=== PATIENT | female | born 1990 | race Hispanic/Latino ===

== ENCOUNTER 2016-05-02 02:13 | Inpatient (IN) | payer OTHER ==
[~2016-05-02] VITALS: Ht 157.5 cm; Wt 54.9 kg
[~2016-05-02 02:13] MED LIST: ASCO1TAB22 PO; Docusate Sodium PO; Hydrocodone/Acetaminophen PO; Ibuprofen PO; PNV1TABL9 PO
[2016-05-02] MEDS ORDERED: Lactated Ringer's 1,000 ML IV PRN (02:44)
[2016-05-02] MEDS ORDERED: Oxytocin 30 Units/500 mL LR 30 UNITS in IV Premix 1 EACH IV PRN ×2 (02:45→11:15)
[2016-05-02] MEDS ORDERED: Ondansetron 2 mg/mL 2 mL Inj IVPUSH PRN ×2 (02:45→03:55)
[2016-05-02] MEDS ORDERED: Hemorrhage Kit, Post Partum XX ONE ×2 (02:45→11:15)
[2016-05-02] MEDS ORDERED: fentaNYL-PF 50 mCg/mL 2 mL Inj IVPUSH PRN (02:45)
[2016-05-02] MEDS ORDERED: Oxytocin 10 Unit/mL Inj IM PRN ×2 (02:45→11:15)
[2016-05-02] MEDS ORDERED: Methylergonovine 0.2 mg/mL Inj IM PRN ×2 (02:45→11:15)
[2016-05-02] MEDS ORDERED: Carboprost 250 mCg/mL Inj IM PRN ×2 (02:45→11:15)
[2016-05-02] MEDS ORDERED: Sodium Chloride LOK Flush 10 mL Syringe IVFLUSH PRN (02:45)
[2016-05-02 03:28] LABS: Mean Corpuscular Hemoglobin 26.7 pg (27.0-35.0)
[2016-05-02] MEDS ORDERED: Lactated Ringer's 1,000 ML IV SCH ×2 (03:55→11:14)
[2016-05-02] MEDS ORDERED: Lactated Ringer's 500 ML IV ONE (03:55)
[2016-05-02] MEDS ORDERED: Atropine 1 mg/10 mL (Code) Syringe IVPUSH PRN (03:55)
[2016-05-02] MEDS ORDERED: EPHEDrine Sulfate 50 mg/mL Inj IVPUSH PRN (03:55)
[2016-05-02] MEDS ORDERED: fentaNYL 2 mCg/mL-Bupiv 0.125% 100 ML EPIDURAL SCH (03:55)
--- NOTE | 2016-05-02 04:41 | PCM.HPANE ---
Patient Data Surgeon Admitting Provider:Ted Pace MD Attending Provider:Ted Pace MD Primary Care Physician:Alex Gusman MD Other Provider:Roberto Carlos Limon Anesthesia Reason for Visit Term Labor TERM LABOR Ht/WT & BMI Body Mass Index Allergies Coded Allergies: No Known Allergies (Unverified , 01/16/14) Diabetes History Hx Diabetes?: No MRSA MRSA: No Medications Active Scripts [Docusate Sodium] (Colace)100 MG CAPSULE No Conflict [id number] Mg PO BID #60 CAPSULE Ref 1 Prov:CochranBull T DO 01/18/14 [Hydrocodone/Acetaminophen] ([place])1 TAB TABLET No Conflict Check1-2 Tab PO Q4H PRN For Pain #15 TABLET Prov:GlasersayeEllynBull T DO 01/18/14 [Ibuprofen] (Motrin)600 MG TABLET No Conflict [id number] Mg PO Q8 PRN For Mild Pain #45 TABLET Ref 1 Prov:Bull Cochran T DO 01/18/14 Reported Medications Ascorbic Acid/Bioflavonoids (Vit C-Bioflavonoids Tab SA)1 Each Tablet.er1 Each PO DAILY 01/16/14 Pnv Cmb#21/Iron/Folic Acid ( Complete Caplet)1 Each Tablet1 Each PO DAILY 01/16/14 History History of ENT Problems?: No Hx of Heart Problems?: No Hx of Respiratory Problem?: No Hx Neurologic Problems?: No Hx of GI Problems?: Yes Other History/Comment Occasional reflux rx'd with priolsec Hx of Problems?: No Female Hx: Positive for:: Currently Other History/Comment at term Hx Musculoskeletal Problems?: No Hx of Psycho/Social Problems?: No Hx Surgeries?: No Hx Diabetes: No Hx Alcohol Use: NoHx Substance Use: No Smoking Status: Never Smoker Stop/Bang Risk Assessment Category Category 1A: Patient has history of documented sleep apnea, and HAS NOT received any narcotic, sedative or anesthesia administration during this stay. Category 1B: Patient has history of documented sleep apnea, and HAS received any narcotic , sedative or anesthesia administration during this stay Category 2: Patient has SUSPECTED Obstructive Sleep Apnea, and HAS received any narcotic , sedative or anesthesia administration during this stay. Category 3: Patient has SUSPECTED Obstructive Sleep Apnea and HAS NOT received narcotic, sedative or anesthesia administration during this stay. Category 4: Outpatient in Procedural Areas with known sleep apnea or who screen positive for High Risk via the STOP/BANG questionnaire. Exam Exam General Appearance: Alert, Oriented X3, Cooperative HEENT/AIRWAY: MP 2 Lungs: Clear to Auscultation Heart: Exam Unremarkable (Exam done prior to starting epidural) Meds/Labs/Diagnostics Labs Test 05/02/16 03:15 White Blood Count 5.8th/mm3 (3.8-10.1) Red Blood Count 4.15mil/mm3 (3.90-5.20) Hemoglobin 11.1g/dL (12.0-15.6) Hematocrit 33.6% (35.0-46.0) Mean Corpuscular Volume 81.0fL (81-100) Mean Corpuscular Hemoglobin 26.7pg (27.0-35.0) Mean Corpuscular Hemoglobin Concent 33.0% (32.0-37.0) Red Cell Distribution Width 13.3% (12.3-15.4) Platelet Count 183bil/L (150-400) Plan Impression Patient chart reviewed, patient interviewed and anesthestic plan with risks, benefits, and alternatives discussed, and informed consent obtained. Juan Manuel Murguia MD May 02, 2016 04:41
--- NOTE | 2016-05-02 04:42 | PCM.ANEP1 ---
Post Anesthesia Phase 1 PACU Phase 1 Assessment Anesthetic Administered: Epidural Level of Alertness: Awake, talking MARKS's with Equal Strength: No Pain: Yes Pain Scale Score: 1 Nausea or Vomiting: No Oxygen Delivery: Room Air Lungs: Clear to Auscultation Dermatome Level: T8 (Costal Margin) (Comfortable and resting) Juan Manuel Murguia MD May 02, 2016 04:42
[2016-05-02] MEDS ORDERED: Sodium Chloride LOK Flush 10 mL Syringe IVFLUSH SCH (08:30)
--- NOTE | 2016-05-02 08:39 | HP ---
[address] [address] HISTORY AND PHYSICAL PATIENT: ALINA ALLISON I : 1990 MR#: [id number] ADMIT: 05/02/2016 JOB ID: [id number] HISTORY OF PRESENT ILLNESS: The patient is a 26-year-old, 2, para 1, at 40 weeks and 6 days, estimated due date May 01, 2016. Comes to labor and delivery with complaint of contractions that started at midnight. The patient comes at 2 o'clock a.m. She is having contractions every 2-3 minutes. She is very uncomfortable. Vital signs stable, temperature 36.7, blood pressure 130/77, pulse 92, respiratory rate 18. heart rate tracing is reactive, category 1. Baseline 140 beats per minute, no decelerations. ALLERGIES: NKDA. SOCIAL HISTORY: Patient denies smoking, alcohol, or illicit recreational drug use. CARE: Significant for suspected IUGR. The growth was essentially normal. All labs were unremarkable. She had ultrasound in the beginning of the second trimester at 14 weeks that showed estimated gestational age May 01, 2016, one day discrepancy from TYE by last menstrual period. The patient is short, she is 5 feet and 2 inches. The ultrasound that was done on April 22, 2016, showed estimated gestational age in 5th percentile. LABORATORIES: Patient's blood group and type is B positive, rubella immune, varicella immune, GBS negative. FAMILY HISTORY: Noncontributory. PHYSICAL EXAMINATION: Temperature 36.7, blood pressure 130/77. HEENT: PERRLA. Chest: Clear bilaterally. Good respiratory effort. Cardiovascular system: Regular rate and rhythm. Abdomen is tender with contractions, fundal height 36.5 cm. Pelvic exam: The cervix is 80% effaced, 4-5 cm dilated, station -1. Bulging bag of membranes. Extremities: No pitting edema. ASSESSMENT AND PLAN: The patient is a 26-year-old, 2, para 1, at 40 weeks and 1 day, estimated due date May 01, 2016. Comes to labor and delivery with complaint of contractions that started at midnight, 2 hours ago, having contractions every 2-3 minutes. Would like to have an epidural. The patient is being admitted for delivery. IV fluids started. Labs were sent. Based on her care and most recent ultrasound, estimated weight in the 5th percentile. The patient is little. It may be a gestational age baby versus intrauterine growth retardation. The coal deliverer is notified. Will anticipate spontaneous vaginal delivery.
[2016-05-02] MEDS ORDERED: Witch Hazel-Glycerin Pads TOPICAL PRN (11:15)
[2016-05-02] MEDS ORDERED: oxyCODONE-Acetamin 5-325 mg Tablet PO PRN (11:15)
[2016-05-02] MEDS ORDERED: LANOlin HPA 7 Gm Ointment TOPICAL PRN (11:15)
[2016-05-02] MEDS ORDERED: Benzocaine (Dermoplast) 20% 60 Gm Spray TOPICAL PRN (11:15)
--- NOTE | 2016-05-02 11:30 | OP ---
[address] [address] OPERATIVE REPORT PATIENT: ALINA ALLISON I : 1990 MR#: [id number] ADMIT: 05/02/2016 JOB ID: [id number] DATE OF SURGERY: 05/02/2016 SURGEON: Sera Rae MD. PREOPERATIVE DIAGNOSIS(ES): 1. A 39-week intrauterine in active labor. 2. Intrauterine growth restriction. POSTOPERATIVE DIAGNOSIS(ES): 1. A 39-week intrauterine in active labor. 2. Intrauterine growth restriction. PROCEDURE: Precipitous spontaneous vaginal delivery. INCOMPLETE DICTATION: Dictation ends here.
[2016-05-02] MEDS ORDERED: Ascorbic Acid 500 mg Tablet PO SCH (17:30)
--- NOTE | 2016-05-03 00:58 | OP ---
[address] [address] OPERATIVE REPORT PATIENT: ALINA ALLISON I : 1990 MR#: [id number] ADMIT: 05/02/2016 JOB ID: [id number] DATE OF SURGERY: 05/02/2016 PREOPERATIVE DIAGNOSIS(ES): 1. A 26-year-old, 2 para 1-0-0-1 female, at 40+ weeks gestational age, in active labor. 2. Intrauterine growth restriction. 3. History of depression. POSTOPERATIVE DIAGNOSIS(ES): 1. A 26-year-old, 2 para 1-0-0-1 female, at 40+ weeks gestational age, in active labor. 2. Intrauterine growth restriction. 3. History of depression. PROCEDURE PERFORMED: Spontaneous vaginal delivery. SURGEON: Sera Rae MD FINDINGS: Live-born , born on May 02, 2016, at 1057 hours, weighing 3083 g, with Apgars of 8 at one minute, 9 at five minutes. COMPLICATIONS: None apparent. ESTIMATED BLOOD LOSS: 200. INDICATIONS: This is a 26-year-old, -0-0-1 female, who is presenting at 40+1 weeks gestational age with EDC of May 01, 2016, in active labor. is complicated by intrauterine growth restriction as well as history of depression. She presented to the Center complaining of regular uterine contractions on the morning of the . She was checked and noted to be 4 cm dilated with bulging bag of water. She was admitted and an epidural was then placed. laboratory data showed a blood type of B positive, antibody screen negative, rubella immune, varicella immune, hep B surface antigen negative, RPR nonreactive, HIV negative, and GBS negative. DESCRIPTION OF PROCEDURE: Artificial rupture of membranes was completed shortly after admission, and an hour and a half later she had progressed to complete. The patient did not feel any pelvic pressure, but did begin having some variable decelerations, so the nurse checked her and noted that the fetus was delivering as I walked into the room. The cord was then clamped and cut. The infant was placed on the mother's abdomen. Cord blood was then obtained. The placenta delivered intact spontaneously and was passed off the table. Thirty units of Pitocin was placed in the IV bag to firm the uterus. Examination of the cervix, vaginal vault and perineum showed no lacerations. The patient tolerated this procedure well. Recovered in Labor and Delivery with her . All sponge, needle, and instrument counts were correct.
[2016-05-03 06:29] LABS: Mean Corpuscular Hemoglobin 26.8 pg (27.0-35.0); Mean Corpuscular Volume 81.5 fL (81-100)
--- NOTE | 2016-05-03 10:29 | PCM.DIMED ---
Discharge Instructions Date of Service May 03, 2016 Dates of Hospitalization May 02, 2016 at 02:33 Diet No restrictions Activity No restrictions Call your provider Fever or Chills, Shortness of breath, Bleeding, Chest pain, Vomitting, Excessive diarrhea, Weakness (unilateral) Patient Instructions Follow-up with PCP in: 6 weeks Ted Pace MD May 03, 2016 10:29
[2016-05-03 11:32] VITALS: BP 110/66; PULSE 79; RESP 18
--- NOTE | 2016-05-03 16:35 | DIS ---
[address] [address] DISCHARGE SUMMARY PATIENT: ALINA ALLISON I : 1990 MR#: [id number] ADMIT: 05/02/2016 JOB ID: [id number] DIS: 05/03/2016 ADMITTING DIAGNOSIS: A 26-year-old, 2, para 1, at 40 weeks and 1 day, in active labor. Intrauterine growth restriction. DISCHARGE DIAGNOSIS: A 26-year-old, 2, para 2, status post spontaneous vaginal delivery at term. The patient is a 26-year-old, 2, para 2 now, who came to Labor and Delivery at night of May 02, 2016, at 2:00 in the morning, complaining of regular contractions every 2-3 minutes. heart rate tracing was reactive, category one. The patient was 4 cm dilated on vaginal exam. She was 80% effaced, station minus one. The patient was admitted for delivery. She received an epidural at around 3:00 in the morning. She was examined at 8 a.m. and was 5-6 cm dilated, 100% effaced, zero station. Artificial rupture of membranes was done shortly after that. The patient progressed to full dilation at around 10 a.m., started pushing at around the same time. She underwent spontaneous vaginal delivery at 10:57 a.m., delivered female weighing 3083 g, with Apgars 8 at one minute and 9 at five minutes. The patient has not had any perineal lacerations. ESTIMATED BLOOD LOSS: 200 mL. Following delivery, the patient was doing well. Trying to breast feed. On day one, May 03, 2016, she was stable, afebrile, not in pain. Vital signs showed temperature 36.7, blood pressure 128/68. The abdomen was nondistended. The fundus was firm. There was no vaginal bleeding. The patient was discharged home on day one, May 03, 2016, in stable condition with all discharge criteria met. She was given discharge medications, includin. Motrin 800 mg p.o. t.i.d. p.r.n. 2. Colace 100 mg p.o. b.i.d. p.r.n. 3. Followup visit in the clinic is scheduled in six weeks.
--- NOTE | 2016-05-08 10:08 | PATH ---
SURGICAL PATHOLOGY Attending Physician:Sera Rae, CASE STATUS: Signed Out PATIENT NAME: ALINA ALLISON I. PID: [id number] : 1990 DATE COLLECTED:05/02/2016 00:00 SPECIMEN: Placenta CLINICAL HISTORY: POSSIBLE IUGR PLACENTA FINAL DIAGNOSIS: PLACENTA WITH UMBILICAL CORD AND MEMBRANES: 1. PLACENTA: 354 GRAMS, WHICH IS APPROXIMATELY THE 5TH PERCENTILE FOR 40 WEEKS GESTATION. NEGATIVE FOR EVIDENCE OF INFARCTION. NEGATIVE FOR SIGNIFICANT INFLAMMATION. NEGATIVE FOR SIGNIFICANT VASCULAR LESIONS. 2.UMBILICAL CORD: 5.4 CM IN LENGTH WITH THREE NORMAL BLOOD VESSELS CORD IS ATTACHED 3.5 CM FROM THE PLACENTAL EDGE. NEGATIVE FOR SIGNIFICANT INFLAMMATION. 3. MEMBRANES: RUPTURED 3.5 CM FROM THE FREE PLACENTAL EDGE. FOCAL ACUTE DECIDUITIS WITH MINIMAL ACUTE CHORIONITIS. ICD10 CODE O36.593 GROSS DESCRIPTION: The specimen is received in formalin, labeled with the patient's name and consists of an intact placenta and includes placental disc (354 g, 16.5 x 15.0 x 1.9 cm), umbilical cord (length-5.4 cm, diameter-1.2 x 0.7 cm) and membranes. The membranes are ruptured 3.5 cm from the free edge of the placenta and are translucent. The umbilical cord is attached 3.5 cm from the edge of the placenta and contains 3 vessels. The surface is smooth and shiny with no evidence of meconium. The maternal surface is dark maroon with normal cotyledon formation. The placental disc is spongy with no hematomas, infarcts, nodules, masses, or lesions. Section code: (A) edge of placenta with membranes, umbilical cord; (B-D) placenta, 3 full thickness sections. 05/05/16 JM MICRO DESCRIPTION: See diagnosis. ICD-9 CODES: CPT CODES: 1: 57063 Electronically Signed Out Keenan Garcia MD [facility] [address], [place] [address] Technical component performed at [facility], [address], [place], [address]
== END 2016-05-03 14:37 | disposition home or self-care (01) | DRG 775 ==
LOC: FBCO 02:13 → FBC 02:33
PROVIDERS: ADMIT Legal Medicine; ATTEND Legal Medicine
PROC: 10E0XZZ Delivery of Products of Conception, External Approach (ICD-10-PCS; principal; 2016-05-02)
PROC: 10907ZC Drainage of Amniotic Fluid, Therapeutic from Products of Conception, Via Natural or Artificial Opening (ICD-10-PCS; 2016-05-02)
DX: O36.5930 Maternal care for other known or suspected poor fetal growth, third trimester, not applicable or unspecified (principal); Z3A.40 40 weeks gestation of pregnancy; Z37.0 Single live birth